=== PATIENT | male | born 1970 | race African-American/Black ===

== ENCOUNTER 2017-06-06 12:48 | Emergency (ER) | payer OTHER ==
[~2017-06-06] VITALS: Ht 180.3 cm; Wt 129.3 kg
[2017-06-06 13:00] VITALS: BP 131/100
[2017-06-06] MEDS ORDERED: ASPIRIN325 MG ORAL (13:13)
[2017-06-06] MEDS ORDERED: LISINOPRIL-HCT1 EAC2 ORAL (13:13)
[2017-06-06] MEDS ORDERED: ATORVASTATIN CA40 MG ORAL (13:13)
[2017-06-06 13:14] LABS: BASOPHILS % (AUTO) 1.6 % (0.0-2.0); EOSINOPHILS % (AUTO) 1.3 % (0.0-3.0); LYMPHOCYTES % (AUTO) 53.9 % (20.0-45.0); MEAN CORPUSCULAR HEMOGLOBIN 32.1 PG (27.0-31.0); MEAN CORPUSCULAR HGB CONC 33.2 G/DL (32.0-36.0); MEAN CORPUSCULAR VOLUME 97 FL (80-99); MEAN PLATELET VOLUME 9.5 FL (6.5-10.1); MONOCYTES % (AUTO) 6.9 % (1.0-10.0); NEUTROPHILS % (AUTO) 36.4 % (45.0-75.0); PLATELET COUNT 218 K/UL (150-450); RED BLOOD COUNT 4.89 M/UL (4.70-6.10); RED CELL DISTRIBUTION WIDTH 12.2 % (11.6-14.8); WHITE BLOOD COUNT 7.3 K/UL (4.8-10.8)
[2017-06-06] MEDS ORDERED: Morphine Sulfate 4mg/ml Inj IVP ONE (13:15)
[2017-06-06] MEDS ORDERED: Nitroglycerin Subl 0.4mg tab (Bottle Of 25) SL PRN (13:15)
[2017-06-06 13:24] LABS: TROPONIN I < 0.30 ng/mL (<=0.30)
[2017-06-06 13:25] LABS: ALANINE AMINOTRANSFERASE 20 U/L (3-41); ALBUMIN/GLOBULIN RATIO 1.2 (1.0-2.7); ANION GAP 13 (5-15); ASPARTATE AMINO TRANSFERASE 15 U/L (5-40); CALCIUM 9.5 mg/dL (8.6-10.2); CARBON DIOXIDE 25 mEQ/L (20-30); CHLORIDE 101 mEQ/L (98-107); GLOMERULAR FILTRATION RATE > 60 mL/min (>60); HEMOLYSIS 10; POTASSIUM 3.8 mEQ/L (3.4-4.9); SODIUM 139 mEQ/L (135-145); TOTAL PROTEIN 7.8 g/dL (6.6-8.7)
[2017-06-06 13:41] LABS: CKMB 2.3 ng/mL (< 6.7)
[2017-06-06 13:53] VITALS: BP 111/66
--- NOTE | 2017-06-06 14:16 | Diagnostic Imaging Report ---
Indication: Dyspnea Comparison: None A single view chest radiograph was obtained. Findings: Cardiomediastinal appearance is within normal limits for age. Pulmonary vascularity is appropriate. The diaphragmatic contour is smooth and costophrenic angles are sharp. No pleural effusions are identified. The bones are unremarkable. Impression: No acute findings
--- NOTE | 2017-06-06 15:04 | Emergency Room Report ---
History of Present Illness General Chief Complaint: Chest Pain Source: Patient (GERONIMO SHELTON M.D.) Present Illness HPI 47-year-old male presents ED complaining of chest pain. States pain started yesterday. 06/18, left-sided, nonradiating, pressure-like. Patient given aspirin and nitro by EMS. States that chest pain is somewhat improved. Denies any shortness of breath. States his significant cardiac history including 2 stents. Denies smoking or drug use. No other aggravating or relieving factors. Denies any other associated symptoms (GERONIMO SHELTON M.D.) Allergies: Coded Allergies: PENICILLINS (Verified Allergy, Unknown, 06/06/17) Patient History Past Medical History: HTN, CAD Past Surgical History: none Pertinent Family History: none Social History: Denies: smoking, alcohol use, drug use Immunizations: UTD Reviewed Nursing Documentation: PMH: Agreed, PSxH: Agreed (GERONIMO HSELTON M.D.) Nursing Documentation-PMH Hx Hypertension: Yes (GERONIMO SHELTON M.D.) Review of Systems All Other Systems: negative except mentioned in HPI (GERONIMO SHELTON M.D.) Physical Exam Vital Signs Date Time Temp Pulse Resp B/P (MAP) Pulse Ox O2 Delivery O2 Flow Rate FiO2 06/06/17 12:50 97.7 106 16 131/100 100 Room Air Sp02 EP Interpretation: reviewed, normal General Appearance: no apparent distress, alert, GCS 15, non-toxic Head: normocephalic, atraumatic Eyes: bilateral eye normal inspection, bilateral eye PERRL ENT: hearing grossly normal, normal pharynx, no angioedema, normal voice Neck: full range of motion, supple/symm/no masses Respiratory: chest non-tender, lungs clear, normal breath sounds, speaking full sentences Cardiovascular #1: regular rate, rhythm, no edema Cardiovascular #2: 2+ carotid (R), 2+ carotid (L), 2+ radial (R), 2+ radial (L) , 2+ dorsalis pedis (R), 2+ dorsalis pedis (L) Gastrointestinal: normal bowel sounds, non tender, soft, non-distended, no guarding, no rebound Rectal: deferred Genitourinary: normal inspection, no CVA tenderness Musculoskeletal: back normal, gait/station normal, normal range of motion, non- tender Neurologic: alert, oriented x3, responsive, motor strength/tone normal, sensory intact, speech normal Psychiatric: judgement/insight normal, memory normal, mood/affect normal, no suicidal/homicidal ideation Reflexes: 3+ bicep (R), 3+ bicep (L), 3+ tricep (R), 3+ tricep (L), 3+ knee (R) , 3+ knee (L) Skin: normal color, no rash, warm/dry, well hydrated Lymphatic: no adenopathy (GERONIMO SHELTON M.D.) Medical Decision Making Diagnostic Impression: Primary Impression: ACS (acute coronary syndrome) Additional Impression: Chest pain Qualified Codes: R07.89 - Other chest pain Labs Test 06/06/17 13:00 White Blood Count 7.3 K/UL (4.8-10.8) Red Blood Count 4.89 M/UL (4.70-6.10) Hemoglobin 15.7 G/DL (14.2-18.0) Hematocrit 47.3 % (42.0-52.0) Mean Corpuscular Volume 97 FL (80-99) Mean Corpuscular Hemoglobin 32.1 PG (27.0-31.0) Mean Corpuscular Hemoglobin Concent 33.2 G/DL (32.0-36.0) Red Cell Distribution Width 12.2 % (11.6-14.8) Platelet Count 218 K/UL (150-450) Mean Platelet Volume 9.5 FL (6.5-10.1) Neutrophils (%) (Auto) 36.4 % (45.0-75.0) Lymphocytes (%) (Auto) 53.9 % (20.0-45.0) Monocytes (%) (Auto) 6.9 % (1.0-10.0) Eosinophils (%) (Auto) 1.3 % (0.0-3.0) Basophils (%) (Auto) 1.6 % (0.0-2.0) Sodium Level 139 mEQ/L (135-145) Potassium Level 3.8 mEQ/L (3.4-4.9) Chloride Level 101 mEQ/L (98-107) Carbon Dioxide Level 25 mEQ/L (20-30) Anion Gap 13 (5-15) Blood Urea Nitrogen 18 mg/dL (7-23) Creatinine 1.0 mg/dL (0.7-1.2) Estimat Glomerular Filtration Rate > 60 mL/min (>60) Glucose Level 125 mg/dL (74-106) Calcium Level 9.5 mg/dL (8.6-10.2) Total Bilirubin 0.8 mg/dL (0.0-1.2) Aspartate Amino Transf (AST/SGOT) 15 U/L (5-40) Alanine Aminotransferase (ALT/SGPT) 20 U/L (3-41) Alkaline Phosphatase 47 U/L (40-129) Total Creatine Kinase 160 U/L (38-174) Creatine Kinase MB 2.3 ng/mL (< 6.7) Creatine Kinase MB Relative Index 1.4 Troponin I < 0.30 ng/mL (<=0.30) Pro-B-Type Natriuretic Peptide 5 pg/mL (0-125) Total Protein 7.8 g/dL (6.6-8.7) Albumin 4.3 g/dL (3.5-5.2) Globulin 3.5 g/dL Albumin/Globulin Ratio 1.2 (1.0-2.7) (GERONIMO SHELTON M.D.) ER Course Received signout from Dr Shelton ECG NSR. Was given ASA, nitro Troponin 0. No other lab abnormalities. Elevated HEART score given HTN, CAD with previous stents Need ACS rule out Remains chest pain free in ED Transferred to [facility] Endorsed to Dr Rodriguez at 420pm (RUBY ARBOLEDA M.D.) EKG Diagnostic Results Rate: normal Rhythm: NSR ST Segments: no acute changes ASA given to the pt in ED: Yes (GERONIMO SHELTON M.D.) Rhythm Strip Diag. Results EP Interpretation: yes Rhythm: NSR, no PVC's, no ectopy (GERONIMO SHELTON M.D.) Chest X-Ray Diagnostic Results Chest X-Ray Diagnostic Results : Chest X-Ray Ordered: Yes # of Views/Limited/Complete: 1 View Indication: Chest Pain EP Interpretation: Yes Interpretation: no consolidation, no effusion, no pneumothorax, no acute cardiopulmonary disease Impression: No acute disease Interpreting ER Provider: Electronically signed by Geronimo Shelton MD (GERONIMO SHELTON M.D.) Last Vital Signs Date Time Temp Pulse Resp B/P (MAP) Pulse Ox O2 Delivery O2 Flow Rate FiO2 06/06/17 13:53 83 16 111/66 100 Room Air 06/06/17 13:00 97.7 Status: improved (GERONIMO SHELTON M.D.) Status: improved (RUBY ARBOLEDA M.D.) Disposition: ADMITTED INPATIENT Condition: Serious Referrals: BIANCA SHETH,REFERRING (PCP) GERONIMO SHELTON M.D. Jun 06, 2017 15:04 RUBY ARBOLEDA M.D. Jun 06, 2017 16:21
[2017-06-06 15:23] VITALS: BP 107/74
[2017-06-06 17:07] VITALS: BP 101/66
== END 2017-06-06 17:22 ==
LOC: EDBD 12:48 → EMR 13:23
DX: I24.9 Acute ischemic heart disease, unspecified (principal); R07.9 Chest pain, unspecified; I10 Essential (primary) hypertension; Z88.0 Allergy status to penicillin; Z95.5 Presence of coronary angioplasty implant and graft
CPT/HCPCS: 36415; 71010; 80053; 82550; 82553; 83880; 84484; 85025; 93005; 96360; 96361; 96374; 99284; J2270; J7040

== ENCOUNTER 2018-10-07 19:18 | Inpatient (IN) | payer OTHER ==
[~2018-10-07] VITALS: Ht 180.3 cm; Wt 134.3 kg
[~2018-10-07 19:18] MED LIST: ASPIRIN325 MG ORAL; ATORVASTATIN CA40 MG ORAL; LISINOPRIL-HCT1 EAC2 ORAL
[2018-10-07] MEDS ORDERED: CLOPIDOGREL75 MG ORAL (19:31)
[2018-10-07] MEDS ORDERED: LISINOPRIL5 MG ORAL (19:31)
[2018-10-07] MEDS ORDERED: METOPROLOL SUCC25 MG ORAL (19:31)
[2018-10-07] MEDS ORDERED: ATORVASTATIN CA40 MG ORAL (19:31)
[2018-10-07 19:33] VITALS: BP 137/75
--- NOTE | 2018-10-07 19:35 | NUR ---
ED Nurse Note: Pt walked in ER and c/o chest pain 1 hour ago, Pt has heart stent replacement. Pt is AO x 4times, VSS, on room air no distress. DONNELLD seen Pt at bedside.
[2018-10-07] MEDS ORDERED: Sodium Chloride 500ML 500 ML IV ONE (19:45)
[2018-10-07 19:52] LABS: BASOPHILS % (AUTO) 1.9 % (0.0-2.0); EOSINOPHILS % (AUTO) 1.6 % (0.0-3.0); HEMATOCRIT 43.4 % (42.0-52.0); HEMOGLOBIN 14.9 G/DL (14.2-18.0); LYMPHOCYTES % (AUTO) 28.4 % (20.0-45.0); MEAN CORPUSCULAR VOLUME 96 FL (80-99); MONOCYTES % (AUTO) 6.2 % (1.0-10.0); PLATELET COUNT 198 K/UL (150-450); RED BLOOD COUNT 4.53 M/UL (4.70-6.10); WHITE BLOOD COUNT 7.2 K/UL (4.8-10.8)
[2018-10-07 20:04] LABS: ANION GAP 10 mmol/L (5-15); BLOOD UREA NITROGEN 19 mg/dL (7-18); CALCIUM 8.9 MG/DL (8.5-10.1); CARBON DIOXIDE 26 MMOL/L (21-32); CHLORIDE 105 MMOL/L (98-107); CREATININE 1.1 MG/DL (0.55-1.30); POTASSIUM 3.9 MMOL/L (3.5-5.1); SODIUM 141 MMOL/L (136-145)
[2018-10-07] MEDS ORDERED: VITAMIN D1000 UNI1 ORAL (20:06)
[2018-10-07] MEDS ORDERED: PRINIVIL10 MG ORAL (20:06)
[2018-10-07] MEDS ORDERED: ASPIRIN81 MG ORAL (20:06)
[2018-10-07] MEDS ORDERED: ARTIFICIAL TEAR15 ML BOTH EYES (20:06)
--- NOTE | 2018-10-07 20:13 | NUR ---
ED Nurse Note: X ray at bedside.
[2018-10-07 20:20] LABS: ALANINE AMINOTRANSFERASE 32 U/L (12-78); ALBUMIN 3.8 G/DL (3.4-5.0); ALBUMIN/GLOBULIN RATIO 0.9 (1.0-2.7); ALKALINE PHOSPHATASE 70 U/L (46-116); ASPARTATE AMINO TRANSFERASE 16 U/L (15-37); BILIRUBIN,TOTAL 0.4 MG/DL (0.2-1.0); CKMB 1.6 NG/ML (0.0-3.6); CREATINE KINASE 205 U/L (26-308)
[2018-10-07 21:52] VITALS: BP 117/55
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
--- NOTE | 2018-10-07 23:41 | NUR ---
ED Nurse Note: Pt asleep when visited, VSS.
--- NOTE | 2018-10-08 01:30 | NUR ---
ED Nurse Note: Pt asleep when visited, VSS.
--- NOTE | 2018-10-08 04:48 | NUR ---
ED Nurse Note: Assist Pt to restroom.VSS.
[2018-10-08 04:49] VITALS: BP 125/66
--- NOTE | 2018-10-08 05:00 | NUR ---
ED Nurse Note: Tropnin blood sample sent to Lab.
--- NOTE | 2018-10-08 05:30 | NUR ---
ED Nurse Note: Mother went home and await the bed open for Pt. [facility] [phone], cell [phone]. Please call her when Pt admit to Tele.
--- NOTE | 2018-10-08 06:00 | NUR ---
ED Nurse Note: Lab report Troponin level 0.189, MD aware.
[2018-10-08] MEDS ORDERED: Enoxaparin 120 mg inj SUBQ ONE (06:30)
--- NOTE | 2018-10-08 06:45 | NUR ---
ED Nurse Note: When counting Pt's belongings , Pt refused nurse to check Pt's wallet. Pt states: this is my personal thing, no body can touch it!
--- NOTE | 2018-10-08 07:04 | NUR ---
HAND-OFF: Report given to Bobby MURPHY.
--- NOTE | 2018-10-08 07:05 | NUR ---
ED Nurse Note: BREAKFAST TRAY PROVIDED TO PT.
--- NOTE | 2018-10-08 07:15 | NUR ---
ED Nurse Note: REPORT RECEIVED FROM JEFFREY NAVARRETE.
--- NOTE | 2018-10-08 07:42 | NUR ---
ED Nurse Note: TELE CALLED FOR PT TRANSFER. PER JEFFREY STEVENSON, TELE UNIT NOT READY TO ACCEPT PT. WILL CALL BACK SHORTLY.
--- NOTE | 2018-10-08 07:59 | NUR ---
ED Nurse Note: TELE CALLED FOR PT TRANSFER. REPORT GIVEN TO JEFFREY WOLFF. PT SENT UP TO TELE UNIT VIA GURNEY WITH ALL BELONGINGS ON PULL OVER ACCOMPANIED BY PRIMARY RN AND EMT.
--- NOTE | 2018-10-08 08:15 | NUR ---
NURSE NOTES: Received patient via gurney, Report given by JEFFREY Moore. Pt is sitting in stable condition, could be able to walk to the bed..Pt is awake, alert, and oriented x4. Pt is on room air and breathing is even and unlabored. No signs and symptoms of acute distress at this time. Pt denies pain at this time. Belongings checked at bed side. Bed is in lowest position with brake engaged, side rails up x2, and bed alarm on. Call light within reach. Will contact attending doctor for orders.
[2018-10-08 08:30] VITALS: BP 144/63
[2018-10-08] MEDS ORDERED: Aspirin Baby 81mg ORAL ONE (09:00)
[2018-10-08] MEDS ORDERED: Artificial Tears 1.4% Op Soln BOTH EYES PRN (10:45)
[2018-10-08] MEDS ORDERED: Vitamin D 1000 IU Tab ORAL SCH (11:00)
[2018-10-08] MEDS ORDERED: Lisinopril 10mg tab ORAL SCH (11:00)
[2018-10-08] MEDS ORDERED: Aspirin Baby 81mg ORAL SCH (11:00)
[2018-10-08] MEDS ORDERED: Metoprolol Succinate XL 25mg tab ORAL SCH (11:00)
--- NOTE | 2018-10-08 11:22 | Diagnostic Imaging Report ---
Indication: Chest pain Technique: One view of the chest Comparison: 06/06/2017 Findings: Lungs and pleural spaces are clear. Heart size is borderline enlarged . No significant change Impression: No acute process Borderline cardiomegaly
[2018-10-08 12:00] VITALS: BP 134/77
--- NOTE | 2018-10-08 12:19 | Cardiology Progress Note ---
Assessment/Plan Assessment/Plan The patient is seen ad examined, full consult note is dictated. Objective Last 24 Hour Vital Signs Date Time Temp Pulse Resp B/P (MAP) Pulse Ox O2 Delivery O2 Flow Rate FiO2 10/08/18 11:20 63 144/63 10/08/18 11:20 144/63 10/08/18 09:46 Room Air 10/08/18 09:00 63 10/08/18 08:30 97.4 67 22 144/63 (90) 97 10/08/18 07:58 98.2 62 16 133/76 99 Room Air 10/08/18 04:49 98.1 78 18 125/66 97 Room Air 78 10/07/18 21:52 98.5 68 16 117/55 99 Room Air 68 10/07/18 19:38 85 15 Room Air 10/07/18 19:33 98.7 88 16 137/75 99 Room Air 10/07/18 19:23 98.1 85 15 130/71 99 Room Air Laboratory Tests Test 10/07/18 19:35 10/07/18 19:40 10/08/18 05:00 Urine Opiates Screen Negative (NEGATIVE) Urine Barbiturates Screen Negative (NEGATIVE) Phencyclidine (PCP) Screen Negative (NEGATIVE) Urine Amphetamines Screen Negative (NEGATIVE) Urine Benzodiazepines Screen Negative (NEGATIVE) Urine Cocaine Screen Negative (NEGATIVE) Urine Marijuana (THC) Screen Negative (NEGATIVE) White Blood Count 7.2 K/UL (4.8-10.8) Red Blood Count 4.53 M/UL (4.70-6.10) L Hemoglobin 14.9 G/DL (14.2-18.0) Hematocrit 43.4 % (42.0-52.0) Mean Corpuscular Volume 96 FL (80-99) Mean Corpuscular Hemoglobin 32.8 PG (27.0-31.0) H Mean Corpuscular Hemoglobin Concent 34.3 G/DL (32.0-36.0) Red Cell Distribution Width 12.0 % (11.6-14.8) Platelet Count 198 K/UL (150-450) Mean Platelet Volume 8.7 FL (6.5-10.1) Neutrophils (%) (Auto) 62.0 % (45.0-75.0) Lymphocytes (%) (Auto) 28.4 % (20.0-45.0) Monocytes (%) (Auto) 6.2 % (1.0-10.0) Eosinophils (%) (Auto) 1.6 % (0.0-3.0) Basophils (%) (Auto) 1.9 % (0.0-2.0) Prothrombin Time 10.8 SEC (9.30-11.50) Prothromb Time International Ratio 1.0 (0.9-1.1) Activated Partial Thromboplast Time 26 SEC (23-33) Sodium Level 141 MMOL/L (136-145) Potassium Level 3.9 MMOL/L (3.5-5.1) Chloride Level 105 MMOL/L (98-107) Carbon Dioxide Level 26 MMOL/L (21-32) Anion Gap 10 mmol/L (5-15) Blood Urea Nitrogen 19 mg/dL (7-18) H Creatinine 1.1 MG/DL (0.55-1.30) Estimat Glomerular Filtration Rate > 60 mL/min (>60) Glucose Level 135 MG/DL (74-106) H Calcium Level 8.9 MG/DL (8.5-10.1) Total Bilirubin 0.4 MG/DL (0.2-1.0) Aspartate Amino Transf (AST/SGOT) 16 U/L (15-37) Alanine Aminotransferase (ALT/SGPT) 32 U/L (12-78) Alkaline Phosphatase 70 U/L (46-116) Total Creatine Kinase 205 U/L (26-308) Creatine Kinase MB 1.6 NG/ML (0.0-3.6) Creatine Kinase MB Relative Index 0.7 Troponin I 0.075 ng/mL (0.000-0.056) 0.189 ng/mL (0.000-0.056) Pro-B-Type Natriuretic Peptide 45 pg/mL (0-125) Total Protein 7.8 G/DL (6.4-8.2) Albumin 3.8 G/DL (3.4-5.0) Globulin 4.0 g/dL Albumin/Globulin Ratio 0.9 (1.0-2.7) Maciej Borja MD Oct 08, 2018 12:19
--- NOTE | 2018-10-08 15:20 | Cardiology Report ---
APPROVED REPORT EXAM: Two-dimensional and M-mode echocardiogram with Doppler and color Doppler. INDICATION Chest Pain M-Mode DIMENSIONS IVSd1.0 (0.7-1.1cm)Left Atrium (MM)4.0 (1.6-4.0cm) LVDd4.8 (3.5-5.6cm)Aortic Root3.3 (2.0-3.7cm) PWd1.1 (0.7-1.1cm)Aortic Cusp Exc.2.0 (1.5-2.0cm) LVDs2.8 (2.5-4.0cm) PWs1.6 cm Technically difficult study due to patient body habitus. Study quality precludes accurate assessment of regional wall motion. Normal left ventricular chamber size, systolic function and wall motion. Left ventricular ejection fraction estimated to be 60 %. No evidence of left ventricular hypertrophy. Anterior Echo-free space, may be due to pericardial fat or effusion. All other cardiac chamber sizes are within normal limits. Focal aortic valve sclerosis with adequate cusp excursion. Thickened mitral valve leaflets with normal excursion. Mild mitral annulus and aortic root calcification. Pulmonic valve not well visualized. Normal tricuspid valve structure. IVC measures at 2.0 cm with physiological collapse. A color flow and spectral Doppler study was performed and revealed: No aortic insufficiency. No mitral regurgitation. reduced left ventricular relaxation c/w impaired relaxation diastolic dysfunction. Trace tricuspid regurgitation. Tricuspid systolic velocities suggests peak right ventricular systolic pressure of 14 mmHg. Trace pulmonic regurgitation present.
[2018-10-08 16:00] VITALS: BP_SYST 126; BP_SYST 130; BP_DIAS 71; BP_DIAS 72
--- NOTE | 2018-10-08 16:30 | History and Physical Report ---
DATE OF ADMISSION: 10/07/2018 HISTORY OF PRESENT ILLNESS: The patient is admitted for chest pain, nausea, coughing nonproductive for 1 day, rule out acute coronary syndrome. The patient has strong cardiac history. The patient basically is having chest pain that is not radiating for one day. The patient has multiple stents. Troponin was borderline elevated. Denies orthopnea. Denies edema. Denies fever or chills. PAST MEDICAL HISTORY: Coronary artery disease, status post AZ, status post cardiac arrest, hypertension, and hyperlipidemia. PAST SURGICAL HISTORY: Status post 7 stents. ALLERGIES: To penicillin. MEDICATIONS: Aspirin, Lipitor, vitamin D, lisinopril, metoprolol. FAMILY HISTORY: Does have history of heart disease. SOCIAL HISTORY: Denies history of alcohol abuse. Denies history of drug abuse. Denies history of smoking. REVIEW OF SYSTEMS: HEENT: Denies headaches. CARDIOVASCULAR: Reports chest pain for one day. Denies orthopnea. GASTROINTESTINAL: He does have nausea. Denies vomiting. RESPIRATORY: Reports nonproductive cough for one day. Denies shortness of breath. EXTREMITIES: Denies pain. CENTRAL NERVOUS SYSTEM: No change in vision or speech pattern. PHYSICAL EXAMINATION: VITAL SIGNS: Temperature is 98.5, pulse is 68, blood pressure is 117/55. HEENT: PERRLA. NECK: Supple. No lymphadenopathy. CHEST: Clear to auscultation CARDIOVASCULAR: Regular rate and rhythm. No murmurs or extra sounds. ABDOMEN: Soft, nontender, nondistended. No organomegaly. EXTREMITIES: No edema. NEUROLOGIC: Reflexes on both sides. LABORATORY DATA: WBC of 7.2, hemoglobin of 14.9, and platelet of 198,000. Sodium 141, potassium of 3.9, BUN of 19, creatinine of 1.1. AST of 16, ALT of 32. Troponin of 0.075. EKG, no significant changes. ASSESSMENT AND PLAN: Chest pain, high risk for AZ, rule out acute coronary syndrome. The patient has history of stent and has history of cardiac arrest in the past. I have asked Dr. Neri to see the patient. Dr. Stevens has also been consulted for the azotemia. Cardiac workup per Dr. Neri. Teena Moreno M.D. DR: Carolynn JOB#: [id number] CC:
--- NOTE | 2018-10-08 18:45 | Consultation ---
DATE OF CONSULTATION: 10/08/2018 CARDIOLOGY CONSULTATION CONSULTING PHYSICIAN: Maciej Neri M.D. REFERRING PHYSICIAN: Josh Dickinson M.D. REASON FOR CONSULTATION: Management of chest pain. HISTORY OF PRESENT ILLNESS: The patient is a very pleasant 48-year-old gentleman with history of coronary artery disease status post myocardial infarction that led to ventricular fibrillation arrest status post PCI with another episode of positive stress test leading to another coronary angiography and PCI which happened earlier this year. The patient has been on dual anti-platelet therapy including aspirin and clopidogrel until yesterday when he was riding his motorcycle in 15 to 20 minute after that day he started to feel aching sensation in the midsternum and nonradiating with no associated shortness of breath. He decided to come to the hospital. At the time of arrival to the hospital, which was around 30 minutes after the onset of the chest pain, chest pain had subsided from most intensity of 7/10 to down to 0/10. He denies any prior history of tobacco. However he has strong family history of coronary artery disease including dad who had myocardial infarction less than age of 60. A 12-lead electrocardiogram in the emergency department revealed sinus rhythm with no evidence of ischemia, normal QT interval. Troponin-I levels were slightly elevated at 0.075 and 0.189. ProBNP was within normal limits at 45. Chest x-ray done in the emergency department showed no acute cardiopulmonary disease. The patient was admitted to telemetry for further evaluation and management. Cardiology consultation was made at request of Dr. Moreno. PAST MEDICAL HISTORY: 1. CAD status post myocardial infarction, status post VFib arrest, status post PCI x2 on two separate occasions. 2. History of hypertension. 3. History of obesity. PAST SURGICAL HISTORY: PCI x2. FAMILY HISTORY: Father had myocardial function at age less than 60. SOCIAL HISTORY: Denies any history of tobacco, alcohol, or illicit drug use. REVIEW OF SYSTEMS: A 12-system review done essentially negative except what was mentioned in history of present illness. ALLERGIES: Penicillin. MEDICATIONS: Includes aspirin 81 mg p.o. daily, clopidogrel 75 mg p.o. daily, vitamin D 2000 units p.o. daily, atorvastatin 40 mg p.o. at bedtime, lisinopril 10 mg p.o. daily, metoprolol 25 mg p.o. daily. LABORATORY AND DIAGNOSTIC DATA: Sodium is 141, potassium 3.9, chloride 105, bicarbonate 26, BUN of 19 creatinine 1.1 glucose 135 calcium is 8.9. Troponin-I 0.075 and 0.189. ProBNP was 45. WBC 7.2, hemoglobin 14.9, hematocrit of 43.4, and platelet count 198. INR is 1.0. Urine tox screen was negative. ASSESSMENT AND PLAN: This is a very delightful 48-year-old gentleman, seen in Cardiology consultation. 1. Troponin leakage, the pattern of increase troponin level is not consistent with plaque rupture and there was no EKG changes that suggesting ischemia. The patient's pain characteristic is atypical in view of the patient's CAD and PCI. We would like to restratify the patient with an myocardial perfusion imaging study. Further therapeutic and diagnostic decision will be based on the results of that study. The patient's ARIK score is considered to be 4 at this time. The patient has been chest pain free ever since arrival to the hospital. 2. History of CAD status post PCI x2. Continue aspirin and Plavix. 3. History of ventricular fibrillation arrest due to ischemic heart disease, underwent successful revascularization. There was no need for defibrillator implantation as arrhythmia was controlled after revascularization. 4. Obesity. We would like to obtain a lipid panel in the morning. I would like to thank, Dr. Moreno, for the courtesy of this consultation. Maciej Neri M.D. DR: Giana JOB#: [id number] CC:
--- NOTE | 2018-10-08 19:25 | NUR ---
HAND-OFF: Report given to JEFFREY Yung.
--- NOTE | 2018-10-08 19:33 | NUR ---
NURSE NOTES: Received report from JEFFREY Kelly. Patient is awake lying semi-joseph's playing with his cellphone; resting comfortably. No signs of acute distress noted; denies pain at this time after Tylenol was administered to him by outgoing shift RN. AOx4; able to make needs known. Checked IV site; patent and flushed. No erythema, bleeding, or infiltration noted. Bed at lowest position, brakes on, siderails up x3. Call light within reach. Will continue to monitor.
[2018-10-08 20:00] VITALS: BP 139/75
[2018-10-08] MEDS: Atorvastatin 20mg tab ORAL SCH (20:25)
[2018-10-09] VITALS: BP 133/62
--- NOTE | 2018-10-09 03:16 | NUR ---
NURSE NOTES: Patient is asleep lying semi-joseph's; resting comfortably. No signs of acute distress or pain noted at this time.
[2018-10-09 04:00] VITALS: BP 125/69
--- NOTE | 2018-10-09 07:25 | NUR ---
NURSE NOTES: Report received from JEFFREY Yung. Pt is sitting in bed and eating his breakfast in stable condition.Pt is awake, alert, and oriented x4. Pt is on room air and breathing is even and unlabored. No signs and symptoms of acute distress at this time. Pt denies pain at this time. Bed is in lowest position with brake engaged, side rails up x2. Call light within reach. Will continue to monitor and follow plan of care.
--- NOTE | 2018-10-09 07:33 | NUR ---
HAND-OFF: Report given to JEFFREY Kelly. Patient is awake eating breakfast. In stable condition.
[2018-10-09 08:00] VITALS: BP 146/79
[2018-10-09] MEDS: Aspirin Baby 81mg ORAL SCH (08:41)
[2018-10-09] MEDS: Vitamin D 1000 IU Tab ORAL SCH (08:41)
[2018-10-09] MEDS: Metoprolol Succinate XL 50mg tab ORAL SCH (08:42)
[2018-10-09] MEDS: Lisinopril 20mg tab ORAL SCH (08:42)
[2018-10-09] MEDS ORDERED: Metoprolol Succinate XL 25mg tab ORAL SCH (09:00)
[2018-10-09] MEDS ORDERED: Lisinopril 10mg tab ORAL SCH (09:00)
[2018-10-09 12:00] VITALS: BP 133/80
[2018-10-09 16:00] VITALS: BP 125/71
--- NOTE | 2018-10-09 19:28 | NUR ---
HAND-OFF: Report given to JEFFREY Harris.
--- NOTE | 2018-10-09 19:30 | NUR ---
NURSE NOTES: Report received from Jack Vázquez RN. Pt is resting in bed in stable condition. Pt is awake, alert, and oriented x4. Pt is on room air and breathing is even and unlabored. No acute distress noted. IV site is asymptomatic, patent, and intact. Bed is in lowest position with brake engaged, side rails up x2. Bed is in lowest position with brake engaged, side rails up x3, and bed alarm on. Call light and side table are within reach. Will continue to monitor.
[2018-10-09 20:00] VITALS: BP 123/73
--- NOTE | 2018-10-09 20:00 | NUR ---
NURSE NOTES: Pt c/o 5/10 non-radiating "sharp" chest pain in the center of the chest. Pt placed on 2L O2 via nasal cannula and given Tylenol 650mg PRN per orders. Pt reports that chest pain was exacerbated by physical activity. Will continue to monitor patient.
--- NOTE | 2018-10-09 20:30 | NUR ---
NURSE NOTES: Pt reports no further chest pain. Pt is resting comfortably in bed in stable condition. No acute distress noted. VSS. Pt is SR on the monitor. Will continue to monitor.
[2018-10-09] MEDS: Atorvastatin 20mg tab ORAL SCH (20:36)
--- NOTE | 2018-10-09 21:59 | General Progress Note ---
Assessment/Plan Problem List: (1) ACS (acute coronary syndrome) ICD Codes: I24.9 - Acute ischemic heart disease, unspecified SNOMED: 151624407 Status: progressing Assessment/Plan chest pain r/o acs afebrile vitals stable check trop Subjective ROS Limited/Unobtainable: Yes Allergies: Coded Allergies: PENICILLINS (Verified Allergy, Unknown, 06/06/17) Objective Last 24 Hour Vital Signs Date Time Temp Pulse Resp B/P (MAP) Pulse Ox O2 Delivery O2 Flow Rate FiO2 10/09/18 20:00 98.2 69 18 123/73 (90) 99 10/09/18 16:00 98.3 64 18 125/71 (89) 97 10/09/18 16:00 65 10/09/18 12:00 63 10/09/18 12:00 97.5 60 18 133/80 (97) 98 10/09/18 09:00 Room Air 10/09/18 08:42 146/79 10/09/18 08:42 68 146/79 10/09/18 08:00 98.5 68 18 146/79 (101) 100 10/09/18 08:00 68 10/09/18 04:00 57 10/09/18 04:00 97.9 81 19 125/69 (87) 97 10/09/18 00:00 97.7 71 18 133/62 (85) 97 10/09/18 00:00 59 Intake and Output 10/08/18 10/09/18 19:00 07:00 Intake Total 480 ml 240 ml Balance 480 ml 240 ml Intake Oral 480 ml 240 ml # Voids 2 2 Laboratory Tests 10/09/18 08:00: Troponin I 0.171H Height (Feet): 5 Height (Inches): 11.00 Weight (Pounds): 296 Neck: supple Cardiovascular: normal rate Respiratory/Chest: lungs clear Abdomen: soft Teena Moreno MD Oct 09, 2018 21:59
[2018-10-10] VITALS: BP 132/77
[2018-10-10 04:00] VITALS: BP 125/66
--- NOTE | 2018-10-10 07:22 | NUR ---
NURSE NOTES: Spoke with Pb, cardiology dept, and pt is okay to have light breakfast but no caffeine. Instructions explained to pt. Pt verbalized understanding of all of the above.
--- NOTE | 2018-10-10 07:23 | NUR ---
HAND-OFF: Report given to Keila Cortez RN. Pt is resting in bed in stable condition. No acute distress noted. Endorsed plan of care.
--- NOTE | 2018-10-10 07:53 | NUR ---
NURSE NOTES: pt awake alert, no distress. no c/o pain. call light within reach. will monitor.
[2018-10-10] MEDS ORDERED: Lexiscan 0.4mg/5ml syringe IV ONE (08:00)
[2018-10-10 08:02] VITALS: BP 124/74
[2018-10-10] MEDS: Vitamin D 1000 IU Tab ORAL SCH (08:34)
[2018-10-10] MEDS: Aspirin Baby 81mg ORAL SCH (08:34)
[2018-10-10] MEDS: Metoprolol Succinate XL 50mg tab ORAL SCH (09:00)
[2018-10-10] MEDS: Lisinopril 20mg tab ORAL SCH (09:00)
[2018-10-10 12:00] VITALS: BP 136/84
--- NOTE | 2018-10-10 14:24 | NUR ---
INSURANCE ALL CLINICALS HAVE BEEN FAXED TO: TYLER CUADRA:HÉCTOR F:[phone]
--- NOTE | 2018-10-10 15:36 | NUR ---
HAND-OFF: Report given to CINDY MURPHY. PT IN STABLE CONDITION. PENDING LEXISCAN RESULTS
[2018-10-10 16:00] VITALS: BP 131/85
--- NOTE | 2018-10-10 16:28 | NUR ---
NURSE NOTES: RELAYED PRELIMINARY RESULTS OF LEXISCAN STRESS TEST TO DR MARTINEZ NO DC ORDER GIVEN
--- NOTE | 2018-10-10 16:44 | Diagnostic Imaging Report ---
Indication: chest pain Technique: The study was conducted under the supervision of a gluing machine operator automatic. lexiscan (regadenoson) infusion over 10 seconds followed by intravenous administration of 32 mCi of technetium 99m Myoview was performed. Three plane SPECT imaging of the heart was then performed. A resting study was performed as part of the one-day protocol with 10.7 mCi of technetium 99m myoview injected intravenously at that time. Three plane SPECT imaging of the heart was obtained. Comparison: None Clinical data: 1. Clinical response: Non ischemic 2. Electrocardiographic response: Non ischemic Findings: The myocardial perfusion scan demonstrates apparent hypoperfusion to the inferior wall probably diaphragmatic attenuation. No reversible defects are seen to suggest ischemia. Left jugular ejection fraction is estimated at 63%. IMPRESSION: No evidence of myocardial ischemia. Suspected inferior wall diaphragmatic attenuation.
--- NOTE | 2018-10-10 17:12 | General Progress Note ---
Assessment/Plan Problem List: (1) ACS (acute coronary syndrome) ICD Codes: I24.9 - Acute ischemic heart disease, unspecified SNOMED: 381545280 Status: progressing Assessment/Plan chest pain r/o acs stress test per cardiology dc planning Subjective ROS Limited/Unobtainable: Yes Allergies: Coded Allergies: PENICILLINS (Verified Allergy, Unknown, 06/06/17) Objective Last 24 Hour Vital Signs Date Time Temp Pulse Resp B/P (MAP) Pulse Ox O2 Delivery O2 Flow Rate FiO2 10/10/18 16:00 98.4 60 18 131/85 (100) 98 10/10/18 12:00 98.4 56 18 136/84 (101) 98 10/10/18 11:26 58 10/10/18 08:27 Room Air 10/10/18 08:02 63 18 124/74 (91) 98 10/10/18 07:16 66 10/10/18 04:00 56 10/10/18 04:00 97.0 78 18 125/66 (85) 98 10/10/18 00:00 57 10/10/18 00:00 97.6 66 18 132/77 (95) 99 10/09/18 21:00 Room Air 10/09/18 20:00 98.2 69 18 123/73 (90) 99 10/09/18 20:00 74 Intake and Output 10/09/18 10/10/18 18:59 06:59 Intake Total 600 ml Balance 600 ml Intake Oral 600 ml # Voids 3 2 Height (Feet): 5 Height (Inches): 11.00 Weight (Pounds): 296 Neck: normal alignment Cardiovascular: normal rate Respiratory/Chest: lungs clear Teena Moreno MD Oct 10, 2018 17:12
--- NOTE | 2018-10-10 19:30 | NUR ---
NURSE NOTES: Report received from Jose M RN and Santo RN. Pt is resting in bed in stable condition. Pt is awake, alert, and oriented x4. Pt is on 2L O2 via nasal cannula and breathing is even and unlabored. No acute distress noted. Pt denies chest pain at this time. IV site noted to be asymptomatic, patent, and intact. Bed is in lowest position with brake engaged and side rails up x2. Call light and side table are within reach. Will continue to monitor.
--- NOTE | 2018-10-10 19:32 | NUR ---
HAND-OFF: Report given to Kimberly Laura.
[2018-10-10 20:00] VITALS: BP 132/80
--- NOTE | 2018-10-10 20:19 | NUR ---
NURSE NOTES: MD Nrei notified of preliminary stress test results: non-ischemic. No new orders per MD and okay to d/c in AM from cardiology standpoint. Orders noted and carried out.
--- NOTE | 2018-10-10 20:32 | NUR ---
NURSE NOTES: MD Moreno notified of stress test results: non-ischemic per report. Per MD, no new orders at this time. Pt in stable condition. Will continue to monitor.
[2018-10-10] MEDS: Atorvastatin 20mg tab ORAL SCH (20:37)
--- NOTE | 2018-10-10 21:17 | Cardiology Progress Note ---
Assessment/Plan Assessment/Plan 1. Troponin leakage, the pattern of increase troponin level is not consistent with plaque rupture and there was no EKG changes that suggesting ischemia. The patient's pain characteristic is atypical, the nuclear stress test is non- ischemic. 2D echocardiography reveals normal LV systolic function with LVEF at 60% and no wall motion abnormalities. 2. History of CAD status post PCI x2. Continue aspirin and Plavix. 3. History of ventricular fibrillation arrest due to ischemic heart disease, underwent successful revascularization. 4. Obesity. Subjective Subjective Sinus rhythm at rate of 60. Objective Last 24 Hour Vital Signs Date Time Temp Pulse Resp B/P (MAP) Pulse Ox O2 Delivery O2 Flow Rate FiO2 10/10/18 17:33 100 10/10/18 16:00 98.4 60 18 131/85 (100) 98 10/10/18 12:00 98.4 56 18 136/84 (101) 98 10/10/18 11:26 58 10/10/18 08:27 Room Air 10/10/18 08:02 63 18 124/74 (91) 98 10/10/18 07:16 66 10/10/18 04:00 56 10/10/18 04:00 97.0 78 18 125/66 (85) 98 10/10/18 00:00 57 10/10/18 00:00 97.6 66 18 132/77 (95) 99 Intake and Output 10/09/18 10/10/18 19:00 07:00 Intake Total 600 ml Balance 600 ml Intake Oral 600 ml # Voids 3 2 2D Echo: LVEF 60%, Grade I LVDD, RVSP 14 mmHg Objective General Appearance: no apparent distress, alert, GCS 15, non-toxic HEENT: normocephalic, atraumatic, bilateral eye PERRL, EOMI. Neck: Negative JVD, no carotid bruit. Respiratory: lungs clear, normal breath sounds. Cardiovascular: Normal S1S2, No murmurs, gallops or rubs, regular rate, rhythm. Gastrointestinal: normal bowel sounds, non tender, soft, non-distended, no guarding, no rebound. Musculoskeletal: No edema, clubbing or cyanosis. Maciej Neri MD Oct 10, 2018 21:17
[2018-10-11] VITALS: BP 129/76
[2018-10-11 04:00] VITALS: BP 132/96
--- NOTE | 2018-10-11 07:45 | NUR ---
NURSE NOTES: Report received from JEFFREY Harris. Patient awake. AOx4. Patient in RA. IV patent. Bed on lowest position, brakes engaged, side rails upx2. Call light within easy reach. Patient "Am I going home today...?" Informed Patient that he has been cleared from Cardiology stand point, waiting to be cleared by primary.
[2018-10-11 08:00] VITALS: BP 131/77
--- NOTE | 2018-10-11 08:05 | NUR ---
HAND-OFF: Report given to Nabor MURPHY. Pt is resting in bed in stable condition. No acute distress noted. Endorsed plan of care.
[2018-10-11] MEDS: Aspirin Baby 81mg ORAL SCH (09:03)
[2018-10-11] MEDS: Metoprolol Succinate XL 50mg tab ORAL SCH (09:03)
[2018-10-11] MEDS: Lisinopril 20mg tab ORAL SCH (09:04)
[2018-10-11] MEDS: Vitamin D 1000 IU Tab ORAL SCH (09:08)
--- NOTE | 2018-10-11 10:05 | NUR ---
CASE MANAGEMENT:REVIEW PATIENT PRESENTED TO AND HELD IN ER 10/07 AND 10/0810/09/17 SI: ACUTE CORONARY SYNDROME 98.0 85 15 130/71 99% ON RA TROPONIN(+) 0.075 AND 0.189 AND 0.171 IS: ASA PO QD PLAVIX PO QD TOPROL XL PO QD LISINOPRIL PO QD : telemetry status INTERQUAL CRITERIA MET 10/10/18 SI: ACS WITH HISTORY OF STENTS 98.4 60 18 131/85 98% ON RA TROPONIN(-) X3 IS: ASA PO QD VIT D PO QD PLAVIX PO QD TOPROL XL PO QD LISINOPRIL PO QD LIPITOR PO QHS : TELEMETRY STATUS PLAN: STRESS TEST ORDERED 10/11/17 IF STRESS TEST NEGATIVE...DISCHARGE HOME TODAY
--- NOTE | 2018-10-11 11:12 | NUR ---
NURSE NOTES: Patient's VS stable. Patient informed family member of his discharge. Belongings checked and signed with patient and filed. railcar switcher removed cleaned and placed. IV and name tag removed. Patient's own medications brought from pharmacy and given to Patient. Patient to continue home meds. Teaching done on home meds. Patient verbalized understanding and appreciated new knowledge. Patient's mother came to picking belt operator Patient. Patient left floor safely accompanied by RN.
[2018-10-11 12:00] VITALS: BP 130/72
--- NOTE | 2018-10-11 12:51 | NUR ---
INSURANCE ALL CLINICALS AND REVIEWS FAXED TO: K[facility] CONN P:[phone] F:[phone] TRK#[id number]
--- NOTE | 2018-10-11 14:03 | NUR ---
NURSE NOTES: PHARMACIST called. Patient was unresponsive and O2 sat 76 on RA.
--- NOTE | 2018-10-11 20:53 | Cardiology Progress Note ---
Assessment/Plan Assessment/Plan 1. Troponin leakage, the pattern of increase troponin level is not consistent with plaque rupture and there was no EKG changes that suggesting ischemia. The patient's pain characteristic is atypical, the nuclear stress test is non- ischemic. 2D echocardiography reveals normal LV systolic function with LVEF at 60% and no wall motion abnormalities. 2. History of CAD status post PCI x2. Continue aspirin and Plavix. 3. History of ventricular fibrillation arrest due to ischemic heart disease, underwent successful revascularization. 4. Obesity. Subjective Subjective Sinus rhythm at rate of 83. Objective Last 24 Hour Vital Signs Date Time Temp Pulse Resp B/P (MAP) Pulse Ox O2 Delivery O2 Flow Rate FiO2 10/11/18 12:00 96.6 83 20 130/72 (91) 98 10/11/18 09:04 132/96 10/11/18 09:03 65 132/96 10/11/18 08:00 81 10/11/18 08:00 97.7 69 20 131/77 (95) 100 10/11/18 04:00 65 10/11/18 04:00 97.2 68 18 132/96 (108) 98 10/11/18 00:00 97.9 75 18 129/76 (93) 97 10/11/18 00:00 75 10/10/18 21:00 Room Air Intake and Output 10/10/18 10/11/18 18:59 06:59 Intake Total 360 ml Balance 360 ml Other 360 ml # Voids 2 1 2D Echo: LVEF 60%, Grade I LVDD, RVSP 14 mmHg Objective General Appearance: no apparent distress, alert, GCS 15, non-toxic HEENT: normocephalic, atraumatic, bilateral eye PERRL, EOMI. Neck: Negative JVD, no carotid bruit. Respiratory: lungs clear, normal breath sounds. Cardiovascular: Normal S1S2, No murmurs, gallops or rubs, regular rate, rhythm. Gastrointestinal: normal bowel sounds, non tender, soft, non-distended, no guarding, no rebound. Musculoskeletal: No edema, clubbing or cyanosis. Maciej Neri MD Oct 11, 2018 20:53
--- NOTE | 2018-10-12 08:48 | Discharge Summary ---
Discharge Summary Discharge Summary _ DATE OF ADMISSION: 10/07/2018 DATE OF DISCHARGE: 10/11/2018 DISCHARGED BY: Dr. Teena Beltran CONSULTANTS: Dr. Maciej Neri BRIEF HOSPITAL COURSE: Patient is a 48-year-old male, who presented to ED for chest pain, nausea, and nonproductive cough for 1 day. Patient has a strong cardiac history. Patient had a history of coronary artery disease with multiple stents, status post cardiac arrest, hypertension and hyperlipidemia. On evaluation at the ED, vital signs were stable. Blood work did not show any leukocytosis, hemoglobin and hematocrit were stable. CMP unremarkable. Initial troponin was 0.075. BNP 45. Urine toxicology was negative. EKG done at showed normal sinus rhythm with no acute changes. Chest x-ray showed no acute disease, no consolidation, no effusion, no pneumothorax. He was then admitted for evaluation of acute coronary syndrome. He underwent cardiac evaluation. Patient has history of CAD status post PR that led to ventricular fibrillation arrest status post PCI with another episode of positive stress test leading to another coronary angiography and PCI that happened earlier this year. He had been on dual antiplatelet therapy including aspirin and Plavix. Cardiac enzymes were monitored and was slightly elevated. EKG done did not show any changes suggesting ischemia. Patient's chest pain is atypical in view of patient's CAD and PCI. Elevated troponin, possibly due to troponin leak, pattern of increase is not consistent with plaque rupture. Patient's ARIK score considered to be 4. He was given Toprol- XL 50 mg daily, lisinopril 20 mg daily and Lipitor 40 mg nightly. Echocardiogram done revealed normal LV systolic function with LVEF 60% with no wall motion abnormalities. He underwent nuclear stress test results were nonischemic. He was eventually cleared for discharged home. FINAL DIAGNOSES: Elevated troponin, possibly due to troponin leak Coronary artery disease status post PCI x2 History of ventricular fibrillation arrest due to ischemic heart disease status post revascularization Obesity DISPOSITION: Patient was discharged home. DISCHARGE MEDICATIONS: Refer to Discharge Medication List. DISCHARGE INSTRUCTIONS: Follow-up in a week. I have been assigned to dictate discharge summary on this account, and I was not involved in the patient's management. Rachel Mares NP Oct 12, 2018 08:47
== END 2018-10-11 11:12 | disposition home or self-care (01) | DRG 198 ==
LOC: EMR 20:20 → 2E 20:35 → EDBEDREQ 10-08 06:16 → EMR 10-08 08:00 → 2E 10-08 11:15
DX: R07.89 Other chest pain (principal); I25.10 Atherosclerotic heart disease of native coronary artery without angina pectoris; Z86.74 Personal history of sudden cardiac arrest; Z68.41 Body mass index [BMI] 40.0-44.9, adult; R74.8 Abnormal levels of other serum enzymes; E66.9 Obesity, unspecified; I10 Essential (primary) hypertension; I25.2 Old myocardial infarction; Z95.5 Presence of coronary angioplasty implant and graft; Z88.0 Allergy status to penicillin; Z79.82 Long term (current) use of aspirin; E78.5 Hyperlipidemia, unspecified; Z79.02 Long term (current) use of antithrombotics/antiplatelets
CPT/HCPCS: 36415; 71045; 78452; 80053; 80307; 82550; 82553; 83880; 84484; 85025; 85610; 85730; 93005; 93017; 93306; 93970; 99285; J2785

== ENCOUNTER 2018-11-14 11:54 | Emergency (ER) | payer OTHER ==
[~2018-11-14] VITALS: Ht 180.3 cm; Wt 130.6 kg
[~2018-11-14 11:54] MED LIST changes: +ARTIFICIAL TEAR15 ML BOTH EYES; +ASPIRIN81 MG ORAL; +CLOPIDOGREL75 MG ORAL; +LISINOPRIL5 MG ORAL; +METOPROLOL SUCC25 MG ORAL; +PRINIVIL10 MG ORAL; +VITAMIN D1000 UNI1 ORAL
[2018-11-14 12:00] VITALS: BP 145/85
--- NOTE | 2018-11-14 12:00 | NUR ---
ED Nurse Note: Patient susan RA 834 c/o of lower left back pain that started 3 days ago 05/18 pain. patient states that the pain radiates to his left upper scrotum, patient is alert and oriented x4, ambulatory however states that he is beginning to experience pain in his left leg, has a hx of DVT, patient was placed on a bed and told not to move until sees patient.
[2018-11-14] MEDS ORDERED: Ketorolac 30mg Inj IM ONE (13:45)
[2018-11-14 14:21] LABS: APPEARANCE,URINE CLEAR; BILIRUBIN, URINE NEGATIVE (NEGATIVE); GLUCOSE, URINE (UA) NEGATIVE (NEGATIVE); KETONES,URINE NEGATIVE (NEGATIVE); LEUKOCYTE ESTERASE ,URINE NEGATIVE (NEGATIVE); NITRITE,URINE NEGATIVE (NEGATIVE); PH,URINE 6 (4.5-8.0); PROTEIN,URINE NEGATIVE (NEGATIVE); UROBILINOGEN,URINE 1 MG/DL (0.0-1.0)
[2018-11-14 14:23] LABS: COLOR,URINE YELLOW
--- NOTE | 2018-11-14 15:00 | NUR ---
ED Nurse Note: Pt. AAOx4. left with steady and all belongings. Pt. education done regarding d/c papers and prescriptions. Pt. verbalized the uderstanding of the teaching. VSS. ID armband removed.
--- NOTE | 2018-11-14 15:03 | Emergency Room Report ---
History of Present Illness General Chief Complaint: Back Pain-No Injury Source: Medical Record Present Illness HPI 48 YO male presents to the ED c/o 04/17 in severity. Left lower back pain x 3 days. denies dysuria but reports pain in the left testicle. pt. denies penile d/ c or recent unprotected intercourse. pt. denies suspicion of STI. pt. denies hematuria or hx of stones. pt. denies fevers, chills, N/V, constipation or diarrhea. Pt. denies recent spinal procedures or hx of cancer. He denies trauma or fall. pt. denies testicular swelling. reports back pain resolves with lying flat on his back. Denies hx of hernias. Denies paresthesias or saddle anesthesia. Patient denies urinary incontinence or retention. Denies dizziness, palpitations, pulsatile sensation of the stomach, or chest Pain. Allergies: Coded Allergies: PENICILLINS (Verified Allergy, Unknown, 06/06/17) Patient History Past Medical History: see triage record Past Surgical History: none Pertinent Family History: none Reviewed Nursing Documentation: PMH: Agreed; PSxH: Agreed Nursing Documentation-PMH Past Medical History: No History, Except For Hx Cardiac Problems: Yes - Cardiac arrest; Stents x 7 Hx Hypertension: Yes Hx Cancer: No Hx Gastrointestinal Problems: No Hx Neurological Problems: No Review of Systems All Other Systems: negative except mentioned in HPI Physical Exam Vital Signs Date Time Temp Pulse Resp B/P (MAP) Pulse Ox O2 Delivery O2 Flow Rate FiO2 11/14/18 11:49 97.9 107 19 145/85 98 Room Air Sp02 EP Interpretation: reviewed, normal General Appearance: no apparent distress, alert, GCS 15, non-toxic Head: normocephalic, atraumatic Eyes: bilateral eye normal inspection, bilateral eye PERRL ENT: hearing grossly normal, normal voice Neck: full range of motion Respiratory: lungs clear, normal breath sounds, speaking full sentences Cardiovascular #1: regular rate, rhythm Gastrointestinal: normal bowel sounds, non tender, soft, non-distended, no guarding, no hernia, other - no palpable hernias Rectal: deferred Genitourinary: normal inspection, no CVA tenderness, penis normal, other - negative phren's sign, cremasteric reflex intact Musculoskeletal: back normal, gait/station normal, normal range of motion, tender - Mild Tenderness to palpation to paraspinal muscles of the left lower back with midline tenderness. Neurologic: alert, oriented x3, responsive, motor strength/tone normal, sensory intact, normal gait, speech normal, grossly normal Psychiatric: judgement/insight normal Skin: normal color, no rash, warm/dry, well hydrated Lymphatic: no adenopathy Medical Decision Making PA Attestation Dr. Osborne is my supervising Physician whom patient management has been discussed with. Diagnostic Impression: Primary Impression: Back pain Qualified Codes: M54.5 - Low back pain ER Course 48 YO male presents to the ED c/o 04/17 in severity. Left lower back pain x 3 days. denies dysuria but reports pain in the left testicle. pt. denies penile d/ c or recent unprotected intercourse. pt. denies suspicion of STI. pt. denies hematuria or hx of stones. pt. denies fevers, chills, N/V, constipation or diarrhea. Pt. denies recent spinal procedures or hx of cancer. He denies trauma or fall. pt. denies testicular swelling. reports back pain resolves with lying flat on his back. Denies hx of hernias. Denies paresthesias or saddle anesthesia. Patient denies urinary incontinence or retention. Denies dizziness, palpitations, pulsatile sensation of the stomach, or chest Pain. Ddx considered: epidural abscess, fracture, sprain/strain, meningitis, spinal chord injury, sciatica, cauda equina, Pyelonephritis, renal calculi, hernia, testicular torsion, epididymitis, prostatitis just to name a few. Vital signs reviewed and are WNL during ED visit. Pt. is afebrile with no signs of infection No new symptoms, and denies recent trauma. No saddle anesthesia noted, Pt. denies incontinence Neurovascular is intact ROM is limited due to pain * Mild Tenderness to palpation to paraspinal muscles of the left lower back with midline tenderness. *Pt. describes pain today as moderate and radiates across the lower back. ORDERS: -Testicular US-- Unremarkable -UA: unremarkable INTERVENTIONS: -Toradol IM -Soma PO D/W Pt. that for further pain management is it recommended to consult PCP or a Chronic Pain management doctor. A provider who can safely prescribe controlled substances with close follow up. DISCHARGE: At this time pt. is stable for d/c to home. Will provide printed patient care instructions, and any necessary prescriptions. Care plan and follow up instructions have been discussed with the patient prior to discharge. Labs Test 11/14/18 14:00 Urine Color Yellow Urine Appearance Clear Urine pH 6 (4.5-8.0) Urine Specific [place] 1.020 (1.005-1.035) Urine Protein Negative (NEGATIVE) Urine Glucose (UA) Negative (NEGATIVE) Urine Ketones Negative (NEGATIVE) Urine Blood Negative (NEGATIVE) Urine Nitrite Negative (NEGATIVE) Urine Bilirubin Negative (NEGATIVE) Urine Urobilinogen 1 MG/DL (0.0-1.0) Urine Leukocyte Esterase Negative (NEGATIVE) CT/MRI/US Diagnostic Results CT/MRI/US Diagnostic Results : Imaging Test Ordered: Testicular US Impression " normal blood flow, no swelling or torsion" Per official radiology report- Please see report for specific details. Last Vital Signs Date Time Temp Pulse Resp B/P (MAP) Pulse Ox O2 Delivery O2 Flow Rate FiO2 11/14/18 12:00 97.9 98 19 145/85 98 Room Air Disposition: HOME, SELF-CARE Condition: Stable Scripts Tramadol Hcl* (ULTRAM*) 50 Mg Tablet 50 MG ORAL Q6H PRN for For Pain, #12 TAB 0 Refills Prov: Venus Javier 11/14/18 Methocarbamol* (ROBAXIN-750*) 750 Mg Tablet 750 MG PO QID, #28 TAB 0 Refills Prov: Venus Javier 11/14/18 Referrals: NON PHYSICIAN (PCP) Patient Instructions: Back Pain, Adult Additional Instructions: Take medications as directed. Follow up with a Primary Care Provider in 3-5 days, even if your symptoms have resolved. --Please review list of primary care clinics, if you do not already have a primary care provider Return sooner to ED if new symptoms occur, or current symptoms become worse. Do not drink alcohol, drive, or operate heavy machinery while taking Robaxin ( Muscle Relaxers) as this may cause drowsiness. - Please note that this Emergency Department Report was dictated using [employer] analyst technology software, occasionally this can lead to erroneous entry secondary to interpretation by the dictation equipment. Venus Javier Nov 14, 2018 15:03
[2018-11-14] MEDS ORDERED: ROBAXIN-750750 MG PO (15:10)
[2018-11-14] MEDS ORDERED: TRAMADOL HCL50 MG ORAL (15:10)
--- NOTE | 2018-11-14 15:18 | Diagnostic Imaging Report ---
Indication:Scrotal pain Technique: Real time grayscale and duplex Doppler imaging of the scrotum performed. Comparison: None Findings: The size, contour, and echogenicitiy of the testis appear normal bilaterally. There is no testicular mass or evidence of torsion. There is good doppler evidence of blood flow within both testes. Epididimi are unremarkable. Right testis measures 4.3 x 3.2 x 2.3 cm. Left testis 4.3 x 3.0 x 2.3 cm. Impression: Negative scrotal ultrasound
[2018-11-14 19:57] VITALS: BP 127/72
== END 2018-11-14 15:00 | disposition home or self-care (01) ==
LOC: EDBD 11:54 → EMR 13:20
DX: M54.5 Low back pain (principal); N50.812 Left testicular pain; I10 Essential (primary) hypertension; Z88.0 Allergy status to penicillin; Z95.5 Presence of coronary angioplasty implant and graft
CPT/HCPCS: 76870; 81003; 96372; 99284; J1885

== ENCOUNTER 2019-09-08 21:50 | Observation (INO) | payer MEDICAID, OTHER ==
[~2019-09-08] VITALS: Ht 180.3 cm; Wt 136.1 kg
[~2019-09-08 21:50] MED LIST changes: +ROBAXIN-750750 MG PO; +TRAMADOL HCL50 MG ORAL
[2019-09-08 21:55] VITALS: BP 137/84
--- NOTE | 2019-09-08 21:58 | NUR ---
ED Nurse Note: pt walked in to ED for c/o chest pain that radiate to his left arm with pressure. pt stated the pain srated about an hour ago. pt has Hx or cardiac arest with 7 stents in the past. pt is aelrt x4.
--- NOTE | 2019-09-08 22:05 | NUR ---
ED Nurse Note: blood sample sent down to lab
[2019-09-08] MEDS ORDERED: Nitroglycerin Subl 0.4mg tab SL PRN (22:15)
[2019-09-08] MEDS ORDERED: Aspirin Baby 81mg ORAL ONE (22:15)
--- NOTE | 2019-09-08 22:16 | Emergency Room Report ---
History of Present Illness General Chief Complaint: Chest Pain Source: Patient Present Illness HPI Is a 49-year-old male with extensive cardiac history. He had previous [place], cardiac arrest, 6 stents, high blood pressure and hyperlipidemia. He presents with chief complaint of chest pain. About less than 2 hours ago, he felt some pressure to his left upper arm. He described as a blood pressure cuff going off sensation. He also then developed chest tightness to the left upper chest. No exertional component. No nausea no vomiting. [place] better now. No diaphoresis. No radiation of the pain. No shortness of breath. He said this felt like previous [place]. He was admitted here ending of the year. He had a troponin leak and negative stress test however. He said he had another stress test since then. It was negative. Allergies: Coded Allergies: PENICILLINS (Verified Allergy, Unknown, 06/06/17) Patient History Past Medical History: see triage record, old chart reviewed, HTN, [place], CAD Past Surgical History: other Pertinent Family History: none Social History: Denies: smoking, alcohol use, drug use Immunizations: other Reviewed Nursing Documentation: PMH: Agreed; PSxH: Agreed Nursing Documentation-PMH Hx Cardiac Problems: Yes - Cardiac arrest; Stents x 7 Hx Hypertension: Yes Hx Cancer: No Hx Gastrointestinal Problems: No Hx Neurological Problems: No Review of Systems Eye: Denies: eye pain, blurred vision ENT: Denies: ear pain, nose congestion, throat swelling Respiratory: Denies: cough, shortness of breath Cardiovascular: Reports: chest pain; Denies: palpitations Gastrointestinal: Denies: abdominal pain, diarrhea, nausea, vomiting Musculoskeletal: Denies: back pain, joint pain Skin: Denies: rash Neurological: Denies: headache, numbness Endocrine: Denies: increased thirst, increased urine Hematologic/Lymphatic: Denies: easy bruising All Other Systems: negative except mentioned in HPI Physical Exam Vital Signs Date Time Temp Pulse Resp B/P (MAP) Pulse Ox O2 Delivery O2 Flow Rate FiO2 09/08/19 21:55 73 19 Room Air 99 09/08/19 21:55 98.3 137/84 99 Vitals normal Sp02 EP Interpretation: reviewed, normal General Appearance: well appearing, no apparent distress, alert Head: normocephalic, atraumatic Eyes: bilateral eye PERRL, bilateral eye EOMI ENT: hearing grossly normal, normal pharynx Neck: full range of motion, supple, no meningismus Respiratory: chest non-tender, lungs clear, normal breath sounds Cardiovascular #1: regular rate, rhythm, no murmur Gastrointestinal: normal bowel sounds, non tender, no mass, no organomegaly, no bruit, non-distended Musculoskeletal: back normal, normal range of motion, gait/station normal Psychiatric: mood/affect normal Medical Decision Making Diagnostic Impression: Primary Impression: ACS (acute coronary syndrome) Additional Impression: Morbid obesity with BMI of 40.0-44.9, adult ER Course Patient presents with chest pain. First set of troponin negative. He has extensive cardiac history. Because of this, will admit for rule out and further work-up. I contacted Dr. Anthony for admission. EKG Diagnostic Results Rate: normal Rhythm: NSR ST Segments: no acute changes ASA given to the pt in ED: Yes Rhythm Strip Diag. Results EP Interpretation: yes Rate: 75 Rhythm: NSR, no PVC's, no ectopy Chest X-Ray Diagnostic Results Chest X-Ray Diagnostic Results : Chest X-Ray Ordered: Yes # of Views/Limited/Complete: 1 View Indication: Chest Pain EP Interpretation: Yes Interpretation: no consolidation, no effusion, no pneumothorax, no acute cardiopulmonary disease Impression: No acute disease Electronically Signed by: Lázaro Lopez MD Last Vital Signs Date Time Temp Pulse Resp B/P (MAP) Pulse Ox O2 Delivery O2 Flow Rate FiO2 09/08/19 21:57 97.9 79 15 154/95 (114) 99 Room Air 09/08/19 21:55 99 Status: improved Disposition: ADMITTED INPATIENT Condition: Serious Lázaro Lopez MD Sep 08, 2019 22:16
[2019-09-08 22:25] LABS: BASOPHILS % (AUTO) 1.3 % (0.0-2.0); EOSINOPHILS % (AUTO) 2.1 % (0.0-3.0); HEMATOCRIT 45.1 % (42.0-52.0); HEMOGLOBIN 15.5 G/DL (14.2-18.0); LYMPHOCYTES % (AUTO) 37.7 % (20.0-45.0); MEAN CORPUSCULAR VOLUME 92 FL (80-99); MONOCYTES % (AUTO) 8.3 % (1.0-10.0); NEUTROPHILS % (AUTO) 50.6 % (45.0-75.0); PLATELET COUNT 222 K/UL (150-450); RED BLOOD COUNT 4.92 M/UL (4.70-6.10); RED CELL DISTRIBUTION WIDTH 11.5 % (11.6-14.8); WHITE BLOOD COUNT 6.5 K/UL (4.8-10.8)
--- NOTE | 2019-09-08 22:25 | NUR ---
ED Nurse Note: pt unable to provide urine at this time
--- NOTE | 2019-09-08 22:25 | NUR ---
ED Nurse Note: CXR done at bedside
[2019-09-08 22:30] LABS: ANION GAP 7 mmol/L (5-15); BLOOD UREA NITROGEN 23 mg/dL (7-18); CALCIUM 8.4 MG/DL (8.5-10.1); CARBON DIOXIDE 29 MMOL/L (21-32); CHLORIDE 104 MMOL/L (98-107); POTASSIUM 3.2 MMOL/L (3.5-5.1); SODIUM 140 MMOL/L (136-145)
[2019-09-08 22:35] LABS: ALANINE AMINOTRANSFERASE 30 U/L (12-78); ALBUMIN 3.7 G/DL (3.4-5.0); ALBUMIN/GLOBULIN RATIO 0.9 (1.0-2.7); ALKALINE PHOSPHATASE 50 U/L (46-116); ASPARTATE AMINO TRANSFERASE 14 U/L (15-37); BILIRUBIN,TOTAL 0.6 MG/DL (0.2-1.0)
[2019-09-09] VITALS: BP 125/62
--- NOTE | 2019-09-09 | NUR ---
ED Nurse Note: Pt is boarded in ED.
[2019-09-09 00:40] VITALS: BP 122/73
--- NOTE | 2019-09-09 00:40 | NUR ---
ED Nurse Note: Urine sample sent down to lab. pt in bed resting with eles closed. VSS
[2019-09-09 00:51] LABS: APPEARANCE,URINE CLEAR; BILIRUBIN, URINE NEGATIVE (NEGATIVE); COLOR,URINE PALE YELLOW; GLUCOSE, URINE (UA) NEGATIVE (NEGATIVE); KETONES,URINE NEGATIVE (NEGATIVE); LEUKOCYTE ESTERASE ,URINE NEGATIVE (NEGATIVE); NITRITE,URINE NEGATIVE (NEGATIVE); PH,URINE 6 (4.5-8.0); PROTEIN,URINE NEGATIVE (NEGATIVE); UROBILINOGEN,URINE NORMAL MG/DL (0.0-1.0)
[2019-09-09] MEDS ORDERED: CARVEDILOL12.5 MG ORAL (02:28)
[2019-09-09] MEDS ORDERED: ASPIR 8181 MG ORAL (02:28)
[2019-09-09] MEDS ORDERED: PLAVIX75 MG ORAL (02:28)
[2019-09-09 02:29] VITALS: BP 118/76
--- NOTE | 2019-09-09 02:41 | NUR ---
ED Nurse Note: Pt in bed resting with eyes closed. appears to be sleeping. no acute distress is noted.
[2019-09-09 04:00] VITALS: BP 122/84
--- NOTE | 2019-09-09 04:04 | NUR ---
ED Nurse Note: Blood saple sent down to lab
--- NOTE | 2019-09-09 05:00 | NUR ---
ED Nurse Note: PT brought up to SDU rom 238 accompanied by RN and hotel lobby concierge with monitor box in stable condition via gurney. IV site to left hand 20g is intact. VSS. pt is ambulatory. inventory signed. report given to Osmin MURPHY/ Edmond Lux RN.
[2019-09-09] MEDS ORDERED: traMADol 50mg tab ORAL PRN (06:00)
--- NOTE | 2019-09-09 06:00 | NUR ---
NURSE NOTES: Report received from JEFFREY Aguilar. Patient transferred to the unit via gurney. Belonging checked with the RN. Skin intact. A/O x4. SR on cafeteria monitor. 126/83, P 61, R 20, SaO2 98%. On 2L NC. No acute distress noted at this time. Denies chest pain at this time. IV on L H 20G, SL, asymptomatic. Bed in the lowest position. Side rails up x2. Will continue to monitor.
--- NOTE | 2019-09-09 07:26 | NUR ---
HAND-OFF: Report given to Esmer Carranza RN. Denies chest pain at this time.
--- NOTE | 2019-09-09 07:50 | NUR ---
NURSE NOTES: received pt in the bed, awake, alert, oriented, vital signs stable, no co chest pain, no SOB, skin warm and dry to touch, intact, obese, use urinal, yellow urine, bed in low position, call light within reach.
[2019-09-09 08:00] VITALS: BP 127/83
[2019-09-09] MEDS ORDERED: Heparin 5000 units/ml inj SUBQ SCH (09:00)
[2019-09-09] MEDS ORDERED: Aspirin EC 81mg tab ORAL SCH (09:00)
[2019-09-09] MEDS ORDERED: Carvedilol 12.5mg tab ORAL SCH (09:00)
[2019-09-09] MEDS: Methocarbamol 750mg tab ORAL SCH ×2 (09:15→12:56)
[2019-09-09 11:38] LABS: ANION GAP 6 mmol/L (5-15); BLOOD UREA NITROGEN 15 mg/dL (7-18); CALCIUM 8.6 MG/DL (8.5-10.1); CARBON DIOXIDE 30 MMOL/L (21-32); CHLORIDE 101 MMOL/L (98-107); CREATININE 0.8 MG/DL (0.55-1.30); POTASSIUM 3.5 MMOL/L (3.5-5.1); SODIUM 137 MMOL/L (136-145)
[2019-09-09 12:00] VITALS: BP 119/65
--- NOTE | 2019-09-09 12:35 | Diagnostic Imaging Report ---
Indication: Chest Comparison: 10/07/2018 A single view chest radiograph was obtained. Findings: Cardiomediastinal appearance is within normal limits for age. The lungs are clear. Pulmonary vascularity is appropriate. The diaphragmatic contour is smooth and costophrenic angles are sharp. No pleural effusions are identified. The bones are unremarkable. Impression: No acute findings
--- NOTE | 2019-09-09 14:46 | NUR ---
CASE MANAGEMENT:REVIEW 49 YR OLD MALE PRESENTED TO ER CC; CHEST PAIN RADIATING TO LT ARM PMH: CARDIAC ARREST AND 7 STENTS SI: ACS 98.3 73 19 137/84 99% ON RA TROPONIN(-) IS: ASA PO NITRO SL CHEST XRAY : TO STEP DOWN UNIT 09/09/19 DISCHARGE HOME
--- NOTE | 2019-09-09 15:00 | History and Physical Report ---
DATE OF ADMISSION: 09/08/2019 REASON FOR ADMISSION: Chest pain. HISTORY OF PRESENT ILLNESS: This is a 49-year-old male with extensive cardiac history including prior NH and multiple stents. The patient presents with chest pain without radiation. The patient currently is chest pain-free. The patient does have a midline chest wall scar. He denies any nausea, vomiting. Denies any radiation of pain. The patient notes negative stress test in the recent past. PAST MEDICAL HISTORY: Notable for the above, hypertension, [place], CAD, prior history of bypass and stent, prior history of cardiac arrest. MEDICATIONS: Reviewed. ALLERGIES: Reviewed. REVIEW OF SYSTEMS: Otherwise noted. PHYSICAL EXAMINATION: GENERAL: A well-developed male, comfortable at present. VITAL SIGNS: Reviewed and are stable. HEENT: Negative. NECK: Supple. LUNGS: Clear. CARDIAC: S1, S2. Regular rate and rhythm. ABDOMEN: Soft, nontender. EXTREMITIES: No edema. Healed scar noted. LABORATORY DATA: Reviewed. IMPRESSION: 1. Chest pain, possible acute coronary syndrome. 2. History of CAD. 3. History of hypertension. 4. History of NH in the past. RECOMMENDATION: 1. Serial troponin. 2. Cardiology clearance and evaluation. 3. Resume home medications. 4. Telemetry. 5. Oxygen. 6. Monitor, stabilize, and discharge once cleared and stable. Tulio Anthony M.D. DR: GRECIA JOB#: [id number] CC:
--- NOTE | 2019-09-09 15:06 | NUR ---
NURSE NOTES: vital signs stable, no co chest pain, dr. Bird saw pt, continue monitoring.
--- NOTE | 2019-09-09 15:45 | NUR ---
NURSE NOTES: pt discharge home as ordered, condition stable, discharge instruction given.
--- NOTE | 2019-09-09 16:45 | Consultation ---
DATE OF CONSULTATION: 09/09/2019 CARDIOLOGY CONSULTATION CONSULTING PHYSICIAN: Anival Bird M.D. REFERRING PHYSICIAN: Tulio Anthony M.D. REASON FOR CONSULTATION: Chest pain. HISTORY OF PRESENT ILLNESS: This is a 49-year-old male, who has a prior history of coronary artery disease and prior coronary stent. He has risk factors for coronary artery disease as well. The patient has some chest discomfort and now bilateral upper arm pain with movement. He was hospitalized and had several stress tests earlier this year that were negative. He came to the hospital out of concern. The patient was hospitalized here in October 2018 and had a myocardial perfusion scan at that time that revealed diaphragmatic attenuation with ejection fraction of 63% and no reversible defect suggesting ischemia otherwise. PAST MEDICAL HISTORY: Possible cardiac arrest, coronary artery disease, history of coronary stents, hypertension, and hyperlipidemia. ALLERGIES: Penicillin. FAMILY HISTORY: Not remarkable. SOCIAL HISTORY: Negative for smoking, alcohol, or substance abuse. REVIEW OF SYSTEMS: Otherwise unremarkable. PHYSICAL EXAMINATION: VITAL SIGNS: Blood pressure 127/83, pulse 62, respirations 23. Afebrile. Oxygen saturation on room air 100%. NECK: Obese. LUNGS: Clear. CARDIAC: Regular. Normal S1, S2 with no murmur. ABDOMEN: Soft. EXTREMITIES: No edema. DIAGNOSTIC DATA: EKG with sinus bradycardia and no abnormality. Troponins negative x3. Potassium was 3.2 yesterday, repeated today is 3.5, with magnesium of 2. IMPRESSION: 1. Noncardiac chest pain, likely musculoskeletal in etiology. 2. Hypokalemia, corrected. 3. Hypertension, controlled. PLAN: 1. Outpatient followup. 2. Continue current cardiovascular regimen at this time. 3. The patient is not on any medications that would lower his potassium level chronically. 4. Follow up lab studies recommended as well with his primary care physician later this week. Anival Bird M.D. : KATHLEEN JOB#: [id number] CC:
--- NOTE | 2019-09-09 19:10 | Cardiology Report ---
APPROVED REPORT EKG Measurement Heart [id number] [place] [id number] Normal sinus rhythm Normal ECG
--- NOTE | 2019-09-09 19:10 | Cardiology Report ---
APPROVED REPORT EKG Measurement Heart [id number] [place] [id number] Sinus bradycardia Otherwise normal ECG
[2019-09-09] MEDS ORDERED: Atorvastatin 20mg tab ORAL SCH (21:00)
--- NOTE | 2019-09-10 10:37 | Discharge Summary ---
Discharge Summary Discharge Summary _ DATE OF ADMISSION: 09/08/2019 DATE OF DISCHARGE: 09/09/2019 DISCHARGED BY: Dr. Anthony REASON FOR ADMISSION: 49 years old male with extensive cardiac history, including previous [place], cardiac arrest, coronary artery disease ,status post 6 stents placement, hypertension, hyperlipidemia, presented with chief complaint of chest pain. Vital signs were stable. Chest x-ray revealed no acute cardiopulmonary pathology. EKG revealed normal sinus rhythm , no acute ischemic changes. Negative troponin. Laboratory work-up revealed Potassium 3.2. BUN 23, creatinine 1.0. Glucose 128. No leukocytosis, stable hemoglobin and hematocrit. Urinalysis revealed no evidence of acute UTI. In emergency department patient received aspirin, potassium was replaced . Patient was admitted for further management. CONSULTANTS: toe former stitchdowns [facility] COURSE: Patient admitted to telemetry floor. Radio Interference Expert consulted. Serial troponin negative. EKG revealed no acute ischemic changes. Patient was ruled out for acute myocardial infarction. Home medication were resumed, including dual antiplatelet therapy with aspirin and Plavix, beta-lesa and statin. Pain management was addressed. Nitroglycerin provided as needed. Potassium was replaced in emergency room and was stable the next day. Patient had several stress tests earlier this year that were negative. Per toe former stitchdowns , chest pain was noncardiac , likely musculoskeletal in etiology. Blood pressure was controlled with current regimen. Radio Interference Expert recommended continue current cardiovascular regimen at this time. Patient clinically stabilized and was ready for discharge home. Due to rapid and unexpected improvement in patient condition, patient was discharged in 1 day. FINAL DIAGNOSES: Noncardiac chest pain , likely musculoskeletal in etiology Hypokalemia Hypertension History of coronary artery disease History of ME DISCHARGE MEDICATIONS: See Medication Reconciliation list. DISCHARGE INSTRUCTIONS: Patient was discharged home. Follow-up with a primary care provider in 1 week. I have been assigned to dictate discharge summary for this account. I was not involved in the patient's management. Helene Albarran NP Sep 10, 2019 10:36
== END 2019-09-09 15:45 | disposition home or self-care (01) ==
LOC: EMR 22:01 → INTOOBSV 22:57 → 2W 22:57 → EDBEDREQ 09-09 03:02
DX: R07.89 Other chest pain (principal); E66.01 Morbid (severe) obesity due to excess calories; Z68.41 Body mass index [BMI] 40.0-44.9, adult; E87.6 Hypokalemia; Z88.0 Allergy status to penicillin; I25.2 Old myocardial infarction; I25.10 Atherosclerotic heart disease of native coronary artery without angina pectoris; Z95.5 Presence of coronary angioplasty implant and graft; Z86.74 Personal history of sudden cardiac arrest; E78.5 Hyperlipidemia, unspecified; Z79.82 Long term (current) use of aspirin; Z79.02 Long term (current) use of antithrombotics/antiplatelets; I11.9 Hypertensive heart disease without heart failure; R00.1 Bradycardia, unspecified
CPT/HCPCS: 36415; 71045; 80048; 80053; 81003; 83735; 84484; 85025; 93005; J1644; Z7502; Z7514; 99285; G0378; J8499

== ENCOUNTER 2020-02-26 13:15 | Emergency (ER) | payer SELFPAY ==
[~2020-02-26] VITALS: Ht 180.3 cm; Wt 136.1 kg
[~2020-02-26 13:15] MED LIST changes: +ASPIR 8181 MG ORAL; +CARVEDILOL12.5 MG ORAL; +PLAVIX75 MG ORAL
[2020-02-26 13:36] VITALS: BP 136/96
--- NOTE | 2020-02-26 13:58 | Emergency Room Report ---
History of Present Illness General Chief Complaint: Pain Source: Patient Present Illness HPI 49-year-old male with history of acute coronary syndrome and 3 stent placement x10 years currently taking aspirin here complaining of 2 weeks of left sided scrotal pain that is radiating to the left inguinal area and down to the leg. Reports that it is worse when walking and standing. Rates the pain 10 out of 10 without radiation to the lower leg. Reports that he recently went to [place] 3 hours. Denies any smoking history and alcohol intake. Denies any chest pain, pleuritic chest pain, shortness of breath, cough or congestion, fever and chills. Has not taken medication other than aspirin for symptom relief. Sitting comfortably with stable signs. Denies any tingling or numbness. Denies urinary and bowel incontinence. Denies urinary frequency, urgency, recent sexual encounter. 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 Patient History Past Medical History: see triage record Past Surgical History: none Pertinent Family History: none Immunizations: UTD Reviewed Nursing Documentation: PMH: Agreed; PSxH: Agreed Nursing Documentation-PM Past Medical History: No Stated History Hx Cardiac Problems: Yes Hx Hypertension: Yes Hx Cancer: No Hx Gastrointestinal Problems: No Hx Neurological Problems: No Review of Systems All Other Systems: negative except mentioned in HPI Physical Exam Vital Signs Date Time Temp Pulse Resp B/P (MAP) Pulse Ox O2 Delivery O2 Flow Rate FiO2 20 13:23 98.6 99 15 136/96 (109) 96 Room Air Sp02 EP Interpretation: reviewed, normal General Appearance: no apparent distress, alert, GCS 15, non-toxic Head: normocephalic, atraumatic Eyes: bilateral eye normal inspection, bilateral eye PERRL ENT: hearing grossly normal, normal pharynx, no angioedema, normal voice Neck: full range of motion, supple/symm/no masses Respiratory: chest non-tender, lungs clear, normal breath sounds, speaking full sentences Cardiovascular #2: 2+ dorsalis pedis (R), 2+ dorsalis pedis (L) Gastrointestinal: normal bowel sounds, non tender, soft, no peritonitis, no bruit, non-distended, no guarding, no rebound Rectal: deferred Musculoskeletal: back normal, no calf tenderness Neurologic: alert, motor strength/tone normal, oriented x3, sensory intact, responsive, speech normal Psychiatric: judgement/insight normal, memory normal, mood/affect normal, no suicidal/homicidal ideation Skin: no rash Lymphatic: no adenopathy Medical Decision Making PA Attestation All my diagnosis and treatment plans were reviewed ad discussed with my supervising physician Dr. Weir Diagnostic Impression: Primary Impression: Diverticulosis Additional Impressions: Muscle strain Pulmonary nodule ER Course 49-year-old male with history of acute coronary syndrome and 3 stent placement x10 years currently taking aspirin here complaining of 2 weeks of left sided scrotal pain that is radiating to the left inguinal area and down to the leg. Reports that it is worse when walking and standing. Rates the pain 10 out of 10 without radiation to the lower leg. Reports that he recently went to [place] 3 hours. Denies any smoking history and alcohol intake. Denies any chest pain, pleuritic chest pain, shortness of breath, cough or congestion, fever and chills. Has not taken medication other than aspirin for symptom relief. Sitting comfortably with stable signs. Denies any tingling or numbness. Denies urinary and bowel incontinence. Denies urinary frequency, urgency, recent sexual encounter. 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 is afebrile H&PE are most consistent with: Diverticulosis, muscle strain ORDERS: abdominal CT, scrotal ultrasound, CBC, CMP, UA, tox screen, PT, troponin , Tylenol, Robaxin ED INTERVENTIONS: None required at this time. DISCHARGE: At this time pt. is stable for d/c to home. Will provide printed patient care instructions, and any necessary prescriptions. Care plan and follow up instructions have been discussed with the patient prior to discharge. Patient to increase fiber intake, increase oral hydration, take medication as directed, follow primary doctor, if worsening symptoms return to the emergency room CT/MRI/US Diagnostic Results CT/MRI/US Diagnostic Results #1: Imaging Test Ordered: CT abdomen pelvis with contrast Impression Diverticulosis without diverticulitis, pulmonary nodules CT/MRI/US Diagnostic Results #2: Imaging Test Ordered: Scrotal ultrasound Impression No torsion, no varicocele, no hydrocele, no epididymitis, no hernia Last Vital Signs Date Time Temp Pulse Resp B/P (MAP) Pulse Ox O2 Delivery O2 Flow Rate FiO2 02/26/20 13:36 98.6 15 136/96 96 Room Air 02/26/20 13:23 99 Disposition: HOME, SELF-CARE Condition: Stable Scripts Acetaminophen* (TYLENOL EXTRA STRENGTH*) 500 Mg Tablet 500 MG ORAL Q8H PRN for Prn Headache/Temp > 101, #30 TAB 0 Refills Prov: Trudi Hui 02/26/20 Methocarbamol* (ROBAXIN-500*) 500 Mg Tablet 500 MG ORAL TID PRN for For Pain, #15 TAB 0 Refills Prov: Trudi Hui 02/26/20 Referrals: NOT CHOSEN IPA/,REFERRING (PCP) Patient Instructions: Diverticulosis, Muscle Strain, [id number] Additional Instructions: Take medication as directed, follow with your primary doctor, if worsening symptoms return to the emergency room Trudi Hui February 26, 2020 13:58
[2020-02-26 14:00] LABS: HEMATOCRIT 46.6 % (42.0-52.0); HEMOGLOBIN 16.6 G/DL (14.2-18.0); MEAN CORPUSCULAR VOLUME 91 FL (80-99); PLATELET COUNT 230 K/UL (150-450); RED CELL DISTRIBUTION WIDTH 11.6 % (11.6-14.8); WHITE BLOOD COUNT 6.2 K/UL (4.8-10.8)
[2020-02-26 14:01] LABS: APPEARANCE,URINE CLEAR; BILIRUBIN, URINE NEGATIVE (NEGATIVE); GLUCOSE, URINE (UA) NEGATIVE (NEGATIVE); KETONES,URINE NEGATIVE (NEGATIVE); LEUKOCYTE ESTERASE ,URINE NEGATIVE (NEGATIVE); NITRITE,URINE NEGATIVE (NEGATIVE); PH,URINE 5 (4.5-8.0); PROTEIN,URINE 1+ (NEGATIVE); UROBILINOGEN,URINE NORMAL MG/DL (0.0-1.0)
[2020-02-26 14:02] LABS: COLOR,URINE YELLOW
[2020-02-26 14:10] LABS: ANION GAP 9 mmol/L (5-15); BLOOD UREA NITROGEN 21 mg/dL (7-18); CALCIUM 9.3 MG/DL (8.5-10.1); CARBON DIOXIDE 31 MMOL/L (21-32); CHLORIDE 104 MMOL/L (98-107); CREATININE 1.2 MG/DL (0.55-1.30); POTASSIUM 3.9 MMOL/L (3.5-5.1); SODIUM 144 MMOL/L (136-145)
[2020-02-26 14:15] LABS: ALANINE AMINOTRANSFERASE 32 U/L (12-78); ALBUMIN 4.1 G/DL (3.4-5.0); ALKALINE PHOSPHATASE 60 U/L (46-116); ASPARTATE AMINO TRANSFERASE 21 U/L (15-37); BILIRUBIN,TOTAL 0.6 MG/DL (0.2-1.0)
[2020-02-26] MEDS ORDERED: Omnipaque-300 100ml vial INJ PRN (14:15)
--- NOTE | 2020-02-26 15:25 | Diagnostic Imaging Report ---
Indication: Abdominal and flank pain Technique: CT of the abdomen and pelvis utilizing automated exposure control with intravenous contrast. Venous scanning performed. Axial, sagittal and coronal reformats presented. CT dose: Total DLP 2084.1 mGycm; CTDI vol 49.3 mGy Comparison: None Findings: Imaged lung bases are without evidence of focal airspace consolidation, pleural effusion or pneumothorax. There is a 2 mm nodule in the right middle lobe. Imaged heart is normal in size. Coronary arterial calcifications and/or indwelling coronary arterial stents partially visualized. Hepatic contour appears smooth. No focal hepatic mass lesion noted on this single phase exam. Hepatic veins and portal veins appear patent. There are no CT evident gallstones or pericholecystic inflammatory changes. No biliary ductal dilatation. Spleen, adrenal glands and pancreas unremarkable. There are no peripancreatic inflammatory changes or fluid collections. Pancreatic enhancement is uniform. The kidneys enhance symmetrically. There is no urinary tract stone, hydronephrosis or perinephric stranding. The bladder is decompressed, precluding reliable evaluation. Prostate does not appear enlarged. There is no free intraperitoneal air or fluid. There is no evidence of small bowel obstruction or focal inflammatory stranding within the mesentery. The appendix is normal and there are no periappendiceal inflammatory changes. There are scattered colonic diverticula without evidence of acute diverticulitis. Abdominal aorta is normal in caliber with mild scattered atherosclerotic calcifications. Small nonspecific bilateral inguinal lymph nodes are noted. No acute osseous abnormality identified. No subcutaneous fluid collection or abscess. IMPRESSION: * Bladder is collapsed, precluding evaluation. Consider correlation with urinalysis as clinically indicated. * No urinary tract stone or hydronephrosis. * Diverticulosis without evidence of acute diverticulitis. * Coronary arterial calcifications and/or indwelling coronary arterial stents partially visualized. * 2 mm nodule in the right middle lobe. The CT scanner at [facility] is accredited by the [employer] and the scans are performed using protocols designed to limit radiation exposure to as low as reasonably achievable to attain images of sufficient resolution adequate for diagnostic evaluation.
--- NOTE | 2020-02-26 15:30 | Diagnostic Imaging Report ---
Indication: Left testicular pain Technique: Real time grayscale and duplex Doppler imaging of the scrotum performed. Comparison: 11/14/2018 Findings: The right testicle measures 3.4 x 2.5 x 4.3 cm. Echogenicity is homogeneous. No sonographically appreciable mass identified. Color and Doppler flow to the right testicle is documented. No hydrocele or varicocele is demonstrated. Epididymis is normal in size. No abnormal hyperemia is noted in the right epididymis. Left testicle measures 4 x 3.4 x 3.5 cm. Echogenicity is homogeneous. No sonographically appreciable mass identified. Color and Doppler flow to the left testicle is documented. No hydrocele or varicocele demonstrated. Epididymis is normal in size. No abnormal hyperemia is noted in the left epididymis. IMPRESSION: Unremarkable scrotal ultrasound.
[2020-02-26] MEDS ORDERED: TYLENOL EXTRA500 MG ORAL (16:03)
[2020-02-26] MEDS ORDERED: ROBAXIN-500MG ORAL (16:03)
[2020-02-26 16:10] VITALS: BP 134/96
== END 2020-02-26 16:10 | disposition home or self-care (01) ==
LOC: EMR 13:38
DX: K57.90 Diverticulosis of intestine, part unspecified, without perforation or abscess without bleeding (principal); T14.8XXA Other injury of unspecified body region, initial encounter; X58.XXXA Exposure to other specified factors, initial encounter; Y92.9 Unspecified place or not applicable; R91.1 Solitary pulmonary nodule; Z95.5 Presence of coronary angioplasty implant and graft; I10 Essential (primary) hypertension; Z88.0 Allergy status to penicillin
CPT/HCPCS: 36415; 74177; 76870; 80053; 80307; 81003; 83880; 84484; 85007; 85025; 85610; 85730; 99284; Q9967

== ENCOUNTER 2020-07-19 07:01 | Emergency (ER) | payer MEDICAID ==
[~2020-07-19] VITALS: Ht 180.3 cm; Wt 131.5 kg
[~2020-07-19 07:01] MED LIST changes: +ROBAXIN-500MG ORAL; +TYLENOL EXTRA500 MG ORAL
[2020-07-19 07:05] VITALS: BP 156/89
[2020-07-19 07:09] VITALS: BP 156/89
--- NOTE | 2020-07-19 07:09 | NUR ---
ED Nurse Note: Pt walked in to ED right 2nd digit possible insect bite x3 days. Reports discharges, swelling and throbbing pain. AAOx4, verbally responsive. No SOB. ERMD at bedside.
[2020-07-19] MEDS ORDERED: CLINDAMYCIN HC300 MG ORAL (07:10)
[2020-07-19] MEDS ORDERED: Clindamycin 150mg cap ORAL SCH (07:15)
--- NOTE | 2020-07-19 07:15 | Emergency Room Report ---
History of Present Illness General Chief Complaint: Skin Rash/Abscess Source: Patient Present Illness HPI Patient is a 50-year-old obese male denies any past history of diabetes who presents to the ER complaining of pain and swelling to his right index finger for the past 3 days. Patient states that he does clean his cuticles and nails with floss. He states that he has no fever or chills. He denies any trauma. Last tetanus shot was greater than 7 years ago. Allergies: Coded Allergies: PENICILLINS (Verified Allergy, Unknown, 06/06/17) COVID-19 Screening Contact w/high risk pt: No Recent Travel to affected area: No Experienced COVID-19 symptoms?: No COVID-19 Testing performed TREASURY AGENT: No Patient History Reviewed Nursing Documentation: PMH: Agreed; PSxH: Agreed Nursing Documentation-PMH Hx Cardiac Problems: Yes Hx Hypertension: Yes Hx Cancer: No Hx Gastrointestinal Problems: No Hx Neurological Problems: No Review of Systems All Other Systems: negative except mentioned in HPI Physical Exam Vital Signs Date Time Temp Pulse Resp B/P (MAP) Pulse Ox O2 Delivery O2 Flow Rate FiO2 07/19/20 07:05 98.4 85 19 156/89 (111) 98 Room Air Sp02 EP Interpretation: reviewed, normal General Appearance: no apparent distress, alert, GCS 15, non-toxic Head: normocephalic, atraumatic Eyes: bilateral eye normal inspection, bilateral eye PERRL ENT: hearing grossly normal, normal pharynx, no angioedema, normal voice Neck: full range of motion, supple/symm/no masses Respiratory: chest non-tender, lungs clear, normal breath sounds, speaking full sentences Cardiovascular #1: regular rate, rhythm, no edema Gastrointestinal: non tender, soft, overweight Rectal: deferred Musculoskeletal: other - Right index finger paronychia with minimal swelling and tenderness to palpation Neurologic: optometric assistant III-XII nml as tested, oriented x3 Psychiatric: no suicidal/homicidal ideation Skin: no rash Lymphatic: no adenopathy Procedures Incision and Drainage Incision and Drainage : Consent: Verbal Blade Size: 11 I & D Procedure: betadine prep Wound Location: upper extremity - Right index finger Wound's Depth, Shape: superficial - Under the cuticle Splint Applied?: No Sling Applied?: No Patient Tolerated: Well Complications: None Medical Decision Making Diagnostic Impression: Primary Impression: Paronychia ER Course I&D performed and wound sample sent for culture. Patient started on clindamycin and updated on his tetanus. After discussing risks and benefits of further diagnostics, treatment plans, as well as indications for and risks of admission, the patient is agreeable to being discharged home. I have explained that their evaluation and treatment in the emergency department today is an important step towards them achieving better health but that their evaluation today is not intended to replace further evaluation and treatment by a physician in their local clinic. I have explained that while the current findings suggest no immediate life threatening emergency they will require further evaluation and treatment by a physician of their choice in their area. They understand that it will be necessary for them to review the final reports of their ED visit with their clinic physician. We have reviewed indications for return to the Emergency Department. I have explained that additional time may need to pass and/or additional testing as an outpatient may be necessary before a definitive diagnosis can be made. They tell me they are willing to follow up as instructed within the timeframe I recommend. They appear to understand what we discussed. Additionally they understand that if they are unable to be seen by an outpatient physician they are welcome, and in fact should, return to the Emergency Department for a repeat evaluation. The patient is stable at time of discharge. Last Vital Signs Date Time Temp Pulse Resp B/P (MAP) Pulse Ox O2 Delivery O2 Flow Rate FiO2 07/19/20 07:09 98.4 89 19 156/89 98 Room Air Disposition: HOME, SELF-CARE Condition: Stable Scripts Clindamycin Hcl (CLINDAMYCIN HCL) 300 Mg Capsule 300 MG ORAL EVERY 6 HOURS for 10 Days, CAP Prov: Yasmin Gant M.D. 07/19/20 Referrals: [facility] Patient Instructions: Archana, [id number] Additional Instructions: The patient was provided with discharge instructions, notified to follow-up with a primary care doctor and or specialist in the next 24-48 hours, and to return to the ED if they have worsening of their symptoms. Please note that this report is being documented using [employer] technology. This can lead to erroneous entry secondary to incorrect interpretation by the dictating instrument. Yasmin Gant M.D. Jul 19, 2020 07:15
[2020-07-19] MEDS: Tetanus/Diptheria/Pertussis IM ONE ×2 (07:16→07:20)
--- NOTE | 2020-07-19 07:17 | NUR ---
ED Nurse Note: Pt refused the tetanus shot. Med discarded in med room.
[2020-07-19 07:19] VITALS: BP 156/89
--- NOTE | 2020-07-19 07:19 | NUR ---
ED Nurse Note: Pt cleared by ERMD for discharge. DC instructions/prescription was given and explained to pt and verbalized understanding of teachings. All medical deviecs such as ID band removed. Pt is AAO x4, ambulatory and left with all personal belongings.
== END 2020-07-19 07:17 | disposition home or self-care (01) ==
LOC: EMR 07:11
DX: L03.011 Cellulitis of right finger (principal); E11.9 Type 2 diabetes mellitus without complications; Z88.0 Allergy status to penicillin
CPT/HCPCS: 10060; 87070; 87205; 90471; 90715; Z7502; 99283